=== PATIENT | female | born 1940 | race Caucasian/White ===

== ENCOUNTER 2021-05-15 15:00 | Inpatient (IN) | payer MEDICARE, BC ==
[2021-05-15] MEDS ORDERED: Acetaminophen 650 MG Suppository PR PRN (17:03)
[2021-05-15] MEDS ORDERED: Ondansetron ODT 4 MG TAB PO PRN (17:03)
[2021-05-15] MEDS ORDERED: Acetaminophen 325 MG TAB PO PRN (17:03)
[2021-05-15] MEDS ORDERED: Nitroglycerin 0.4 MG TAB (25 Tab Bottle) SL PRN (17:03)
[2021-05-15] MEDS ORDERED: hydrALAZINE 20 MG/ML VIAL SLOW IVP PRN (17:05)
[2021-05-15] MEDS ORDERED: Dextrose 5% in Water 1,000 ML IV PRN (17:54)
[2021-05-15] MEDS ORDERED: Dextrose 50% Abboject 50 ML SYRINGE SLOW IVP PRN (17:54)
[2021-05-15] MEDS ORDERED: HumaLOG 300 UNITS/3 ML VIAL SC PRN (17:54)
[2021-05-15] MEDS ORDERED: hydrALAZINE 20 MG/ML VIAL SLOW IVP SCH (18:00)
[2021-05-15] MEDS ORDERED: Aspirin Chewable 81 MG TAB PO SCH (18:00)
[2021-05-15 19:41] LABS: #Basophils 0.1 10x3/uL (0.0-0.2); #Eosinphils 0.1 10x3/uL (0.0-0.5); #Neutrophils 8.7 10x3/uL (1.5-8.4); %Basophils 0.9 % (0.0-2.0); %Eosinophils 0.7 % (0.0-6.0); %Lymphocytes 18.7 % (18.0-47.0); %Monocytes 8.4 % (0.0-10.0); %Neutrophils 71.1 % (40.0-75.0); Hemoglobin 11.2 g/dL (12.0-15.5); Mean Corpuscular HGB CONC 31.2 g/dL (32.0-36.0); Mean Corpuscular Hemoglobin 28.4 pg (27.0-33.0); Mean Corpuscular Volume 90.9 fl (81.6-98.3); Mean Platelet Volume 10.9 fl (7.4-10.4); Platelet Count 256 10x3/uL (150-450); RBC Distribution Width 14.6 % (11.5-14.5); Red Blood Cell (RBC) Count 3.95 10x6/uL (3.90-5.03); White Blood Cell (WBC) Count 12.2 10x3/uL (3.5-10.5)
[2021-05-15 19:49] LABS: Anion Gap 18 mmol/L (10-20); BUN (Urea Nitrogen) 16 mg/dL (9.8-20.1); Calc. Creatinine Clearance 67 mL/min (70-130); Calcium 8.7 mg/dL (7.8-10.44); Carbon Dioxide 20 mmol/L (23-31); Chloride 108 mmol/L (98-107); Glucose 157 mg/dL (83-110); Potassium 3.6 mmol/L (3.5-5.1); Sodium 142 mmol/L (136-145)
[2021-05-15] MEDS ORDERED: TICAGRELOR 90 MG TABLET PO SCH (20:30)
[2021-05-15 20:50] LABS: CKMB 26.7 ng/mL (0-6.6)
[2021-05-15] MEDS ORDERED: Metoprolol Tartrate 25 MG TAB PO SCH (21:00)
[2021-05-15] MEDS ORDERED: Atorvastatin Calcium 40 MG TAB PO SCH (21:00)
[2021-05-15] MEDS: Metoprolol Tartrate 25 MG TAB PO SCH (21:33)
[2021-05-15] MEDS: Nitroglycerin 2% Ointment 1 INCH/1 GM Packet TOP SCH (21:33)
[2021-05-15] MEDS: Enoxaparin Sodium 60 MG/0.6 ML SYRINGE SC SCH (21:34)
[2021-05-15 22:49] LABS: Lactic Acid 2.1 mmol/L (0.5-2.2)
[2021-05-15] MEDS ORDERED: traMADol HCl 50 MG TAB PO SCH (23:15)
[2021-05-16 00:09] LABS: SARS-CoV-2 NAA Rapid Test Not Detected (NotDetected)
[2021-05-16] MEDS: Nitroglycerin 2% Ointment 1 INCH/1 GM Packet TOP SCH ×3 (05:36→21:35)
[2021-05-16 06:10] LABS: Anion Gap 15 mmol/L (10-20); BUN (Urea Nitrogen) 14 mg/dL (9.8-20.1); Calc. Creatinine Clearance 69 mL/min (70-130); Calcium 8.5 mg/dL (7.8-10.44); Carbon Dioxide 20 mmol/L (23-31); Cardiac Risk 3.3 (Less than 4.5); Chloride 109 mmol/L (98-107); Cholesterol 147 mg/dl (< 200 Desired); Glucose 160 mg/dL (83-110); HDL Cholesterol 45 mg/dL (>60 Neg Risk); LDL Cholesterol, Calculated 82 mg/dL; Potassium 3.6 mmol/L (3.5-5.1); Sodium 140 mmol/L (136-145); Triglycerides 98 mg/dL (Less than 150)
[2021-05-16 08:20] LABS: #Basophils 0.1 10x3/uL (0.0-0.2); #Eosinphils 0.2 10x3/uL (0.0-0.5); #Monocytes 0.9 10x3/uL (0.0-1.1); #Neutrophils 5.6 10x3/uL (1.5-8.4); %Basophils 1.1 % (0.0-2.0); %Eosinophils 2.8 % (0.0-6.0); %Lymphocytes 17.2 % (18.0-47.0); %Monocytes 10.8 % (0.0-10.0); %Neutrophils 67.9 % (40.0-75.0); Hemoglobin 10.2 g/dL (12.0-15.5); Mean Corpuscular HGB CONC 32.1 g/dL (32.0-36.0); Mean Corpuscular Hemoglobin 28.7 pg (27.0-33.0); Mean Corpuscular Volume 89.3 fl (81.6-98.3); Platelet Count 256 10x3/uL (150-450); RBC Distribution Width 14.5 % (11.5-14.5); Red Blood Cell (RBC) Count 3.56 10x6/uL (3.90-5.03); White Blood Cell (WBC) Count 8.3 10x3/uL (3.5-10.5)
[2021-05-16 08:48] LABS: Critical Call Chem Troponin I 0
[2021-05-16] MEDS: Enoxaparin Sodium 60 MG/0.6 ML SYRINGE SC SCH ×2 (09:19→20:15)
[2021-05-16] MEDS: TICAGRELOR 90 MG TABLET PO SCH ×2 (09:19→20:14)
[2021-05-16] MEDS: Metoprolol Tartrate 25 MG TAB PO SCH ×2 (09:19→20:14)
[2021-05-16] MEDS: Aspirin Chewable 81 MG TAB PO SCH (09:19)
[2021-05-16 09:38] LABS: CKMB 10.5 ng/mL (0-6.6)
[2021-05-16 12:49] LABS: CKMB 7.1 ng/mL (0-6.6)
[2021-05-16] MEDS: HumaLOG 300 UNITS/3 ML VIAL SC PRN (13:01)
[2021-05-16] MEDS ORDERED: Lisinopril 5 MG TAB PO SCH (18:43)
[2021-05-16] MEDS ORDERED: Valsartan 80 MG TAB PO SCH (19:00)
[2021-05-16] MEDS ORDERED: Potassium Chloride 20 MEQ TAB PO SCH (19:00)
[2021-05-16] MEDS ORDERED: Furosemide 40 MG/4 ML VIAL SLOW IVP SCH (19:00)
[2021-05-16] MEDS: Atorvastatin Calcium 40 MG TAB PO SCH (20:14)
[2021-05-17 05:14] LABS: #Basophils 0.1 10x3/uL (0.0-0.2); #Eosinphils 0.4 10x3/uL (0.0-0.5); #Neutrophils 5.2 10x3/uL (1.5-8.4); %Basophils 0.9 % (0.0-2.0); %Eosinophils 4.6 % (0.0-6.0); %Lymphocytes 20.6 % (18.0-47.0); %Neutrophils 61.5 % (40.0-75.0); Hemoglobin 10.3 g/dL (12.0-15.5); Mean Corpuscular HGB CONC 31.7 g/dL (32.0-36.0); Mean Corpuscular Hemoglobin 28.3 pg (27.0-33.0); Mean Corpuscular Volume 89.3 fl (81.6-98.3); Mean Platelet Volume 11.3 fl (7.4-10.4); Platelet Count 253 10x3/uL (150-450); RBC Distribution Width 14.8 % (11.5-14.5); Red Blood Cell (RBC) Count 3.64 10x6/uL (3.90-5.03); White Blood Cell (WBC) Count 8.4 10x3/uL (3.5-10.5)
[2021-05-17 05:18] LABS: Anion Gap 15 mmol/L (10-20); BUN (Urea Nitrogen) 14 mg/dL (9.8-20.1); Calc. Creatinine Clearance 63 mL/min (70-130); Calcium 8.6 mg/dL (7.8-10.44); Carbon Dioxide 26 mmol/L (23-31); Chloride 108 mmol/L (98-107); Glucose 156 mg/dL (83-110); Potassium 3.6 mmol/L (3.5-5.1); Sodium 145 mmol/L (136-145)
[2021-05-17] MEDS: Nitroglycerin 2% Ointment 1 INCH/1 GM Packet TOP SCH ×3 (05:30→22:12)
[2021-05-17] MEDS ORDERED: DOPamine/D5W 400 mg/250 ml PREMIX ONE (07:00)
[2021-05-17] MEDS: Enoxaparin Sodium 60 MG/0.6 ML SYRINGE SC SCH ×2 (08:16→22:10)
[2021-05-17] MEDS: Aspirin Chewable 81 MG TAB PO SCH (08:34)
[2021-05-17] MEDS: TICAGRELOR 90 MG TABLET PO SCH ×2 (08:34→22:11)
[2021-05-17] MEDS: Carvedilol 3.125 MG TAB PO SCH ×2 (08:39→17:25)
[2021-05-17] MEDS ORDERED: Valsartan 80 MG TAB PO SCH (09:00)
[2021-05-17 09:46] LABS: Prothrombin Time 11.4 sec (9.5-12.1)
[2021-05-17] MEDS ORDERED: Heparin 10,000 UNITS/ 10 ML VIAL ONE (13:07)
[2021-05-17] MEDS ORDERED: Nitroglycerin 50 MG/250 ML BOT 250 ML ONE (13:07)
[2021-05-17] MEDS ORDERED: Bivalirudin 250 MG VIAL ONE (13:08)
[2021-05-17] MEDS ORDERED: Verapamil 5 MG/2 ML VIAL ONE (13:08)
[2021-05-17] MEDS ORDERED: Adenosine 6 MG/2 ML VIAL ONE (13:08)
[2021-05-17] MEDS ORDERED: Sodium Chloride 0.9% 1,000 ML ONE (13:10)
[2021-05-17] MEDS ORDERED: Lidocaine 1% (PF) 30 ML VIAL ONE (13:27)
[2021-05-17] MEDS ORDERED: Midazolam HCl 2 mg/2 ml Vial ONE (13:29)
[2021-05-17] MEDS ORDERED: Fentanyl 100 MCG/2 ML VIAL ONE (13:29)
[2021-05-17] MEDS ORDERED: Lidocaine 1% PF 5 ML VIAL ONE (13:34)
[2021-05-17] MEDS ORDERED: Sodium Chloride 0.9% 200 ML IV PRN (15:02)
[2021-05-17] MEDS ORDERED: Acetaminophen/Codeine 30-300mg Tablet PO PRN ×2 (15:02)
[2021-05-17] MEDS ORDERED: Nitroglycerin 0.4 MG TAB (25 Tab Bottle) SL PRN (15:02)
[2021-05-17] MEDS ORDERED: DOPamine 400 MG/D5W 250 ML 250 ML IVPB SCH ×3 (15:45→17:45)
[2021-05-17] MEDS: Ondansetron PF 4 MG/2 ML Vial IVP PRN (16:25)
[2021-05-17 16:56] LABS: Hemoglobin 9.2 g/dL (12.0-15.5)
[2021-05-17] MEDS ORDERED: Furosemide 20 MG/2 ML VIAL SLOW IVP SCH (18:00)
[2021-05-17] MEDS ORDERED: Sodium Chloride 0.9% 1,000 ML IV SCH (19:15)
[2021-05-17] MEDS ORDERED: Dextrose 5 %-0.45 % NaCl 1,000 ML IV SCH (20:45)
[2021-05-17] MEDS ORDERED: Promethazine HCl 12.5 MG in Sodium Chloride 0.9% 50 ML IVPB SCH (20:45)
[2021-05-17] MEDS: Atorvastatin Calcium 40 MG TAB PO SCH (22:12)
[2021-05-17] MEDS: HumaLOG 300 UNITS/3 ML VIAL SC PRN (22:26)
[2021-05-18] MEDS: Ondansetron PF 4 MG/2 ML Vial IVP PRN ×3 (00:08→20:21)
[2021-05-18 04:31] LABS: #Basophils 0.1 10x3/uL (0.0-0.2); #Monocytes 1.2 10x3/uL (0.0-1.1); #Neutrophils 11.8 10x3/uL (1.5-8.4); %Basophils 0.3 % (0.0-2.0); %Lymphocytes 10.5 % (18.0-47.0); %Monocytes 8.1 % (0.0-10.0); %Neutrophils 80.6 % (40.0-75.0); Mean Corpuscular HGB CONC 31.9 g/dL (32.0-36.0); Mean Corpuscular Hemoglobin 28.5 pg (27.0-33.0); Mean Corpuscular Volume 89.2 fl (81.6-98.3); Mean Platelet Volume 11.7 fl (7.4-10.4); Platelet Count 256 10x3/uL (150-450); RBC Distribution Width 15.6 % (11.5-14.5); Red Blood Cell (RBC) Count 3.51 10x6/uL (3.90-5.03); White Blood Cell (WBC) Count 14.6 10x3/uL (3.5-10.5)
[2021-05-18 04:46] LABS: Anion Gap 17 mmol/L (10-20); BUN (Urea Nitrogen) 22 mg/dL (9.8-20.1); Calc. Creatinine Clearance 41 mL/min (70-130); Calcium 8.5 mg/dL (7.8-10.44); Carbon Dioxide 23 mmol/L (23-31); Chloride 107 mmol/L (98-107); Glucose 220 mg/dL (83-110); Potassium 3.5 mmol/L (3.5-5.1); Sodium 143 mmol/L (136-145)
[2021-05-18 05:51] LABS: Magnesium 1.5 mg/dL (1.6-2.6)
[2021-05-18 06:27] LABS: CKMB 49.3 ng/mL (0-6.6)
[2021-05-18 08:43] LABS: Anion Gap 15 mmol/L (10-20); BUN (Urea Nitrogen) 23 mg/dL (9.8-20.1); Calc. Creatinine Clearance 43 mL/min (70-130); Calcium 8.3 mg/dL (7.8-10.44); Carbon Dioxide 23 mmol/L (23-31); Chloride 107 mmol/L (98-107); Glucose 214 mg/dL (83-110); Potassium 4.1 mmol/L (3.5-5.1); Sodium 141 mmol/L (136-145)
[2021-05-18] MEDS: Aspirin Chewable 81 MG TAB PO SCH (08:45)
[2021-05-18] MEDS: TICAGRELOR 90 MG TABLET PO SCH ×2 (08:45→20:21)
[2021-05-18] MEDS: Carvedilol 3.125 MG TAB PO SCH (08:45)
[2021-05-18] MEDS ORDERED: Magnesium 2 GM/50 ML BAG (IN WATER) ONE ×2 (08:55)
[2021-05-18] MEDS: Magnesium 2 GM/50 ML 2 GM in Premix Bag 1 BAG IVPB SCH ×2 (09:00→10:33)
[2021-05-18] MEDS ORDERED: Potassium Chloride 20 MEQ TAB PO SCH (09:00)
[2021-05-18] MEDS: HumaLOG 300 UNITS/3 ML VIAL SC PRN ×2 (09:24→16:57)
[2021-05-18] MEDS ORDERED: Potassium Chloride 10 MEQ in Premix Bag 1 BAG IVPB SCH (10:00)
[2021-05-18] MEDS: Atorvastatin Calcium 40 MG TAB PO SCH (20:21)
[2021-05-18] MEDS: Enoxaparin Sodium 40 MG/0.4 ML SYRINGE SC SCH (20:22)
[2021-05-19 03:27] LABS: #Basophils 0.1 10x3/uL (0.0-0.2); #Eosinphils 0.3 10x3/uL (0.0-0.5); #Monocytes 1.3 10x3/uL (0.0-1.1); %Basophils 0.9 % (0.0-2.0); %Eosinophils 2.9 % (0.0-6.0); %Lymphocytes 17.3 % (18.0-47.0); %Monocytes 11.2 % (0.0-10.0); %Neutrophils 67.4 % (40.0-75.0); Hemoglobin 7.9 g/dL (12.0-15.5); Mean Corpuscular HGB CONC 32.2 g/dL (32.0-36.0); Mean Corpuscular Hemoglobin 28.9 pg (27.0-33.0); Mean Corpuscular Volume 89.7 fl (81.6-98.3); Mean Platelet Volume 11.7 fl (7.4-10.4); Platelet Count 192 10x3/uL (150-450); RBC Distribution Width 15.5 % (11.5-14.5); Red Blood Cell (RBC) Count 2.73 10x6/uL (3.90-5.03); White Blood Cell (WBC) Count 11.9 10x3/uL (3.5-10.5)
[2021-05-19 03:38] LABS: Anion Gap 13 mmol/L (10-20); BUN (Urea Nitrogen) 25 mg/dL (9.8-20.1); Calc. Creatinine Clearance 40 mL/min (70-130); Calcium 7.8 mg/dL (7.8-10.44); Carbon Dioxide 23 mmol/L (23-31); Chloride 103 mmol/L (98-107); Glucose 194 mg/dL (83-110); Magnesium 2.8 mg/dL (1.6-2.6); Sodium 136 mmol/L (136-145)
[2021-05-19] MEDS: Potassium Chloride 20 MEQ in Premix Bag 1 BAG IVPB SCH ×2 (08:32→11:37)
[2021-05-19] MEDS: Lidocaine 5% Patch TD SCH ×3 (08:33→10:20)
[2021-05-19] MEDS: Aspirin Chewable 81 MG TAB PO SCH (08:34)
[2021-05-19] MEDS: TICAGRELOR 90 MG TABLET PO SCH ×2 (08:34→20:50)
[2021-05-19] MEDS ORDERED: Calcium Carbonate 500 MG ChewTAB PO PRN (10:34)
[2021-05-19] MEDS: HumaLOG 300 UNITS/3 ML VIAL SC PRN (12:30)
[2021-05-19 13:24] LABS: Bilirubin Neg (Negative); Blood, Urine Negative (Negative); Clarity Clear (Clear); Glucose, Urine (Dipstick) Normal (Negative); Ketone, Urine Negative (Negative); Leukocyte Negative (Negative); Nitrite Negative (Negative); Protein, Urine (Dipstick) Negative (Neg-Trace); Urobilinogen Normal mg/dL (Less than 2)
[2021-05-19 13:36] LABS: Bacteria/HPF None Seen HPF (None Seen); RBC/HPF None Seen HPF (0-3); Squamous Epithelial 0-3 HPF (0-3); WBC/HPF None Seen HPF (0-3)
[2021-05-19] MEDS: Nitroglycerin 2% Ointment 1 INCH/1 GM Packet TOP SCH (14:16)
[2021-05-19] MEDS: Atorvastatin Calcium 40 MG TAB PO SCH (20:50)
[2021-05-19] MEDS: Enoxaparin Sodium 40 MG/0.4 ML SYRINGE SC SCH (20:51)
[2021-05-19] MEDS: Transdermal Patch Removal TOP SCH (20:54)
[2021-05-20 03:34] LABS: Anion Gap 12 mmol/L (10-20); BUN (Urea Nitrogen) 21 mg/dL (9.8-20.1); Calc. Creatinine Clearance 52 mL/min (70-130); Carbon Dioxide 23 mmol/L (23-31); Chloride 110 mmol/L (98-107); Glucose 128 mg/dL (83-110); Potassium 4.2 mmol/L (3.5-5.1); Sodium 141 mmol/L (136-145)
[2021-05-20 03:44] LABS: #Basophils 0.1 10x3/uL (0.0-0.2); #Eosinphils 0.4 10x3/uL (0.0-0.5); #Monocytes 1.3 10x3/uL (0.0-1.1); #Neutrophils 7.9 10x3/uL (1.5-8.4); %Basophils 0.7 % (0.0-2.0); %Eosinophils 3.3 % (0.0-6.0); %Monocytes 11.2 % (0.0-10.0); %Neutrophils 70.5 % (40.0-75.0); Hemoglobin 7.6 g/dL (12.0-15.5); Mean Corpuscular HGB CONC 31.1 g/dL (32.0-36.0); Mean Corpuscular Hemoglobin 28.8 pg (27.0-33.0); Mean Corpuscular Volume 92.4 fl (81.6-98.3); Mean Platelet Volume 11.9 fl (7.4-10.4); Platelet Count 205 10x3/uL (150-450); RBC Distribution Width 15.6 % (11.5-14.5); Red Blood Cell (RBC) Count 2.64 10x6/uL (3.90-5.03); White Blood Cell (WBC) Count 11.2 10x3/uL (3.5-10.5)
[2021-05-20 04:19] VITALS: BMI 29.5
[2021-05-20] MEDS: Aspirin Chewable 81 MG TAB PO SCH (11:31)
[2021-05-20] MEDS: Lidocaine 5% Patch TD SCH (11:31)
[2021-05-20] MEDS: TICAGRELOR 90 MG TABLET PO SCH ×2 (11:31→21:12)
[2021-05-20 18:05] LABS: Bilirubin Neg (Negative); Blood, Urine 25 (Negative); Clarity Clear (Clear); Glucose, Urine (Dipstick) 50 mg/dL (Negative); Ketone, Urine 5 mg/dL (Negative); Leukocyte 25 (Negative); Nitrite Negative (Negative); Protein, Urine (Dipstick) 30 mg/dl (Neg-Trace); Urobilinogen Normal mg/dL (Less than 2)
[2021-05-20 18:16] LABS: Bacteria/HPF 3+ HPF (None Seen); Mucous/LPF 1+ LPF (<2+); RBC/HPF 0-3 HPF (0-3); WBC/HPF 0-3 HPF (0-3)
[2021-05-20] MEDS: Atorvastatin Calcium 40 MG TAB PO SCH (21:12)
[2021-05-20] MEDS: Enoxaparin Sodium 40 MG/0.4 ML SYRINGE SC SCH (21:12)
[2021-05-20] MEDS: Transdermal Patch Removal TOP SCH (21:14)
[2021-05-21 04:08] LABS: #Basophils 0.1 10x3/uL (0.0-0.2); #Eosinphils 0.2 10x3/uL (0.0-0.5); #Monocytes 1.1 10x3/uL (0.0-1.1); #Neutrophils 6.9 10x3/uL (1.5-8.4); %Basophils 0.9 % (0.0-2.0); %Eosinophils 2.1 % (0.0-6.0); %Lymphocytes 12.8 % (18.0-47.0); %Monocytes 11.6 % (0.0-10.0); %Neutrophils 72.2 % (40.0-75.0); Hemoglobin 9.1 g/dL (12.0-15.5); Mean Corpuscular HGB CONC 32.3 g/dL (32.0-36.0); Mean Corpuscular Hemoglobin 29.4 pg (27.0-33.0); Mean Platelet Volume 11.4 fl (7.4-10.4); Platelet Count 208 10x3/uL (150-450); RBC Distribution Width 15.6 % (11.5-14.5); White Blood Cell (WBC) Count 9.6 10x3/uL (3.5-10.5)
[2021-05-21 04:22] LABS: Anion Gap 13 mmol/L (10-20); BUN (Urea Nitrogen) 18 mg/dL (9.8-20.1); Calc. Creatinine Clearance 62 mL/min (70-130); Calcium 8.2 mg/dL (7.8-10.44); Carbon Dioxide 22 mmol/L (23-31); Chloride 110 mmol/L (98-107); Glucose 136 mg/dL (83-110); Magnesium 2.1 mg/dL (1.6-2.6); Potassium 4.1 mmol/L (3.5-5.1); Sodium 141 mmol/L (136-145)
[2021-05-21] MEDS: Lidocaine 5% Patch TD SCH (10:35)
[2021-05-21] MEDS: Aspirin Chewable 81 MG TAB PO SCH (10:35)
[2021-05-21] MEDS: TICAGRELOR 90 MG TABLET PO SCH (10:35)
[2021-05-21 15:11] VITALS: BP 127/61; TEMP 98.3
== END 2021-05-21 16:40 | DRG 246 ==
LOC: CSHTELE 15:00 → OBSVTOIN 17:03 → CSHIMCU 05-17 16:52 → CSHTELE 05-19 13:43
PROVIDERS: ADMIT Internal Medicine; ATTEND Family Medicine
PROC: 027034Z Dilation of Coronary Artery, One Artery with Drug-eluting Intraluminal Device, Percutaneous Approach (ICD-10-PCS; principal; 2021-05-17)
PROC: 4A023N7 Measurement of Cardiac Sampling and Pressure, Left Heart, Percutaneous Approach (ICD-10-PCS; 2021-05-17)
PROC: B2111ZZ Fluoroscopy of Multiple Coronary Arteries using Low Osmolar Contrast (ICD-10-PCS; 2021-05-17)
PROC: B2151ZZ Fluoroscopy of Left Heart using Low Osmolar Contrast (ICD-10-PCS; 2021-05-17)
PROC: 30233N1 Transfusion of Nonautologous Red Blood Cells into Peripheral Vein, Percutaneous Approach (ICD-10-PCS; 2021-05-17)
PROC: 3E033XZ Introduction of Vasopressor into Peripheral Vein, Percutaneous Approach (ICD-10-PCS; 2021-05-17)
DX: I21.4 Non-ST elevation (NSTEMI) myocardial infarction (principal); I50.21 Acute systolic (congestive) heart failure; I50.32 Chronic diastolic (congestive) heart failure; N17.9 Acute kidney failure, unspecified; I97.630 Postprocedural hematoma of a circulatory system organ or structure following a cardiac catheterization; D62 Acute posthemorrhagic anemia; Z20.822 Contact with and (suspected) exposure to COVID-19; I25.10 Atherosclerotic heart disease of native coronary artery without angina pectoris; I25.5 Ischemic cardiomyopathy; I11.0 Hypertensive heart disease with heart failure; E78.5 Hyperlipidemia, unspecified; E11.9 Type 2 diabetes mellitus without complications; Y83.8 Other surgical procedures as the cause of abnormal reaction of the patient, or of later complication, without mention of misadventure at the time of the procedure; E87.6 Hypokalemia; K58.9 Irritable bowel syndrome, unspecified; E66.01 Morbid (severe) obesity due to excess calories; I95.9 Hypotension, unspecified; Z60.2 Problems related to living alone; I49.5 Sick sinus syndrome; Z95.5 Presence of coronary angioplasty implant and graft; Z88.8 Allergy status to other drugs, medicaments and biological substances; Z95.0 Presence of cardiac pacemaker; Z79.82 Long term (current) use of aspirin; Z79.899 Other long term (current) drug therapy; Z79.84 Long term (current) use of oral hypoglycemic drugs; Z85.3 Personal history of malignant neoplasm of breast; Z90.10 Acquired absence of unspecified breast and nipple; Z98.84 Bariatric surgery status; Z87.891 Personal history of nicotine dependence
CPT/HCPCS: 36415; 36416; 36430; 71045; 80048; 80053; 80061; 81001; 82274; 82553; 83605; 83690; 83735; 83880; 84145; 84484; 85025; 85379; 85610; 86850; 86900; 86901; 92928; 93005; 93010; 93306; 93458; 94760; 99152; 99153; C1725; C1760; C1887; C9600; J0153; J0360; J0583; J1265; J1644; J1650; J1815; J1940; J2001; J2250; J2405; J2550; J3010; J3475; J3480; J7042; J7050; P9016; U0002